=== PATIENT | female | born 1955 | race Caucasian/White ===

== ENCOUNTER 2020-02-29 08:34 | Outpatient (CLI) | payer BC, SELFPAY ==
--- NOTE | ~2020-02-29 | MR_ITS ---
EXAMINATION: MR lumbar spine wo con DATE: 02/29/2020 10:31 INDICATION: Lumbar spinal stenosis. Maigne syndrome. TECHNIQUE: Magnetic resonance imaging (MRI) of the lumbar spine was performed without intravenous con trast. Sequences included sagittal T2-weighted FSE, sagittal T2-weighted FS FSE, sagittal T1-weighted FSE, and axial T2-weighted FSE. COMPARISON: Lumbar spine MRI 01/04/17 FINDINGS: There is 12 degrees levoscoliosis of lumbar spine. There is 3 mm anterolisthesis of L3 on L 4. Vertebral body heights are normal. There is mildly decreased disc height at L3-L4 and severely dec reased disc height at L4-L5. The distal spinal cord signal intensity is normal. The conus medullaris is at T12-L1. The following disc levels are specifically discussed: L1-L2: The disc does not extend beyond the endplate margin. There is mild right facet joint osteoarth ritis. There is no neural foraminal stenosis. There is no central canal stenosis. L2-L3: The disc is bulging and has an annular fissure. There is moderate bilateral facet joint osteoa rthritis. There is mild bilateral neural foraminal stenosis. There is mild central canal stenosis. L3-L4: The disc is bulging and has an annular fissure. There is severe bilateral facet joint osteoart hritis. There is mild bilateral neural foraminal stenosis. There is mild central canal stenosis. L4-L5: The disc is bulging and has an annular fissure. There is severe right and mild left facet join t osteoarthritis. There is moderate right and mild left neural foraminal stenosis. There is mild cent ral canal stenosis. L5-S1: The disc is bulging and has an annular fissure. There is mild bilateral facet joint osteoarthr itis. There is mild bilateral neural foraminal stenosis. There is mild central canal stenosis. IMPRESSION: 1. Severe lumbar spondylosis, worsened from 01/04/2017. 2. Lumbar levoscoliosis. Reviewed, dictated and finalized at location A.
== END 2020-02-29 08:35 | disposition home or self-care (01) ==
LOC: CHSIMG 08:36
PROVIDERS: PCP Family Medicine; Visit Provider Nurse Practitioner Family
DX: M48.061 Spinal stenosis, lumbar region without neurogenic claudication (principal)
CPT/HCPCS: 72148

== ENCOUNTER 2021-04-13 09:21 | Outpatient (CLI) | payer BC, SELFPAY ==
--- NOTE | ~2021-04-13 | MM_ITS ---
EXAMINATION: MM scrn marybeth implant BI w toan HISTORY: Screening mammogram TECHNIQUE: Craniocaudal and mediolateral oblique 3-D tomosynthesis images with implant displacement a nd synthetic 2-D images were generated. Craniocaudal and mediolateral oblique views of the breasts wi thout implant displacement were obtained using full field digital mammography. CAD analysis was submi tted and interpreted. COMPARISON: No prior mammogram is available for comparison at this institution. BREAST PARENCHYMAL COMPOSITION: There are scattered areas of fibroglandular density. FINDINGS: There is no evidence of suspicious mass, calcification, or architectural distortion to sugg est malignancy in either breast. IMPRESSION: 1. No mammographic evidence of malignancy. 2. Recommend routine screening mammography in one year. BI-RADS Category 1: Negative Reviewed, dictated and finalized at location A.
[2021-04-13 09:34] LABS: Hematocrit 41.3 % (35.0-49.0); Hemoglobin 13.2 g/dL (12.0-15.0); Mean Corpuscular Volume 103.3 fL (78.0-102.0); Mean Platelet Volume 9.4 fl (9.2-11.8); Platelet Count Result 210 K/mm3 (150-420); Red Cell Distribution Width 12.4 % (11.6-14.4); White Blood Count 7.5 K/mm3 (4.8-10.8)
[2021-04-13 10:04] LABS: Alanine Aminotransferase 22 U/L (14-59); Alkaline Phosphatase 86 U/L (46-116); Anion Gap 9 mmol/L (8-16); Aspartate Amino Transferase 35 U/L (15-37); Bilirubin,Total 0.2 mg/dL (0.00-1.00); Blood Urea Nitrogen 19 mg/dL (7-18); Calcium 8.7 mg/dL (8.5-10.1); Carbon Dioxide 31 mmol/L (21-32); Chloride 103 mmol/L (98-108); Cholesterol 157 mg/dL (0-200); Estimated Glomerular Filt Rate > 60; Glucose 62 mg/dL (70-99); HDL Direct 54 mg/dL (40-60); LDL Cholesterol Calculated 88 mg/dL (<130); Osmolality Calculated 296 mOsm/kg (285-295); Potassium 4.6 mmol/L (3.5-5.1); Sodium 143 mmol/L (136-145); Total Protein 7.3 g/dL (6.4-8.2); Triglycerides 77 mg/dL (0-150)
== END 2021-04-13 09:22 | disposition home or self-care (01) ==
PROVIDERS: PCP Family Medicine; Visit Provider Family Medicine
DX: M54.9 Dorsalgia, unspecified (principal); G89.29 Other chronic pain; Z12.31 Encounter for screening mammogram for malignant neoplasm of breast
CPT/HCPCS: 36415; 77063; 77067; 80053; 80061; 85027

== ENCOUNTER 2021-10-05 14:36 | Outpatient (NON) | payer MEDICARE, SELFPAY | END 2021-10-05 14:37 | disposition home or self-care (01) | LOC: CHSLAB 14:38 | PROVIDERS: Visit Provider Family Medicine | DX: D22.5 Melanocytic nevi of trunk (principal) | CPT/HCPCS: 88305; 88342 ==

== ENCOUNTER 2022-05-04 11:39 | Outpatient (CLI) | payer MEDICARE, SELFPAY ==
[2022-05-04 11:51] LABS: Hematocrit 41.4 % (35.0-42.0); Hemoglobin 13.7 g/dL (11.7-13.8); Mean Corpuscular HGB Conc 33.1 g/dL (32.0-36.0); Mean Corpuscular Hemoglobin 34.2 pg (27.0-31.0); Mean Corpuscular Volume 103.2 fL (78.0-102.0); Mean Platelet Volume 9.7 fl (9.2-11.8); Platelet Count Result 205 K/mm3 (150-420); Red Blood Count 4.01 M/mm3 (4.20-5.40); Red Cell Distribution Width 12.8 % (11.6-14.4); White Blood Count 6.6 K/mm3 (4.8-10.8)
[2022-05-04 12:18] LABS: Alanine Aminotransferase 22 U/L (14-59); Alkaline Phosphatase 73 U/L (46-116); Anion Gap 8 mmol/L (8-16); Aspartate Amino Transferase 24 U/L (15-37); Bilirubin,Total 0.3 mg/dL (0.00-1.00); Blood Urea Nitrogen 17 mg/dL (7-18); Carbon Dioxide 27 mmol/L (21-32); Chloride 101 mmol/L (98-108); Cholesterol 162 mg/dL (0-200); Estimated Glomerular Filt Rate > 60; Glucose 232 mg/dL (70-99); HDL Direct 57 mg/dL (40-60); LDL Cholesterol Calculated 93 mg/dL (<130); Osmolality Calculated 290 mOsm/kg (285-295); Sodium 136 mmol/L (136-145); Total Protein 7.3 g/dL (6.4-8.2); Triglycerides 60 mg/dL (0-150)
== END 2022-05-04 11:40 | disposition home or self-care (01) ==
PROVIDERS: PCP Family Medicine; Visit Provider Family Medicine
DX: L40.50 Arthropathic psoriasis, unspecified (principal); F17.210 Nicotine dependence, cigarettes, uncomplicated; Z13.6 Encounter for screening for cardiovascular disorders; Z00.00 Encounter for general adult medical examination without abnormal findings
CPT/HCPCS: 36415; 80053; 80061; 85027

== ENCOUNTER 2022-06-01 07:30 | Day surgery (SDC) | payer MEDICARE, SELFPAY ==
[2022-05-11 10:20] VITALS: BMI 22.8
[2022-05-18 13:20] VITALS: BMI 23.4
[2022-06-01 07:45] VITALS: BP 128/72; PULSE 91; RESP 16; TEMP 37.4; O2SAT 99
[2022-06-01] MEDS: LACTATED RINGERS 1,000 ML 150 ML IV CONT (08:09)
--- NOTE | 2022-06-01 08:33 | WPDANESEPPF ---
Anes - Initial Pre Proc Eval Procedure: Operation Date: 06/01/22 10:00 Proposed Procedures p Screening Colonoscopy - Austin Rascon DO Date/Time: 06/01/22 08:33 Surgeon: Austin Rascon DO Pre Op Diagnosis: Neoplasm Screening Patient Data Age: 66 Gender: F Height: 1.65 m Weight: 62.7 kg Last Vital Signs Temp 37.4 C 06/01/22 07:45 Pulse 91 06/01/22 07:45 Resp 16 06/01/22 07:45 BP 128/72 06/01/22 07:45 Pulse Ox 99 06/01/22 07:45 O2 Del Method Room Air 06/01/22 07:45 Allergies Allergy/AdvReac Type Severity Reaction Status Date / Time pregabalin [From Lyrica] Allergy Severe Hives Verified 06/01/22 08:10 erythromycin base AdvReac Intermediate GI upset Verified 06/01/22 08:10 infliximab [From Remicade] AdvReac Intermediate Other Verified 06/01/22 08:10 Home Medications Medication Instructions Recorded Confirmed Type oxycodone-acetaminophen 7.5 mg-325 2 tablet PO Q4H PRN Pain 07/06/20 06/01/22 History mg tablet (Percocet) ibuprofen 200 mg tablet 600 mg PO BID PRN Pain 05/18/22 06/01/22 History ixekizumab 80 mg/mL subcutaneous 80 mg subcut MONTHLY 05/18/22 05/18/22 History auto-injector (Taltz Autoinjector) tizanidine 4 mg tablet 8 mg PO BID PRN MUSCLE SPASMS 05/18/22 05/18/22 History Patient hx anesthesia problems: none Family hx anesthesia problems: none Results Review: All pre-operative results and documents have been reviewed as part of the pre-operative evaluation. [facility] Past Medical History Medical History Arthritis with psoriasis Arthritis, rheumatoid Chronic back pain Cigarette nicotine dependence Surgical History Surgical History H/O section History of hip surgery History of hysterectomy Hx laparoscopic cholecystectomy Family History Family History Father Hypertension Social History Social History Smoking packs per day: 1 Smoking cigarettes per day: 20.0 Years smoked: 50 Smoking pack-years: 50.00 Smoking status: Current every day smoker Tobacco type: cigarettes Alcohol intake: never Substance use: current Substance use type: marijuana Other substance usage details: MEDICAL MARIJUANA Last use: WEEKLY Living arrangements: alone Spiritual care concerns: No Anes - Eval Final PreProcedure Day of Procedure 06/01/22 08:33 Patient weight: normal Heart: regular rate and rhythm Lungs: decreased breath sounds Airway: Mallampati scale class II Neurological: alert and oriented Last oral intake: >/= 8 hours ASA classification: III Emergent: no Anesthetic plan: proceed Anesthesia type and monitoring: general GIVS and standard monitoring Results Review: All pre-operative results and documents have been reviewed as part of the pre-operative evaluation. Informed Consent: The patient's anesthetic plan and its attendant risks and benefits were discussed with the patient/family/POA. Questions were solicited and answers provided to the satisfaction of the patient/family/POA.
--- NOTE | 2022-06-01 09:19 | PM.IMHP ---
H&P: HPI History of Present Illness Date/Time: 06/01/22 09:19 Chief Complaint: Screening Narrative: 66 yo woman presents for colonoscopy. Last done 7-10 years ago. she has had a couple episodes of stool incontinence lately. Denies hematochezia or melena. She has relatives that had colon cancer but no 1st degree relatives. Review of Systems Review of Systems: All systems reviewed & are unremarkable except as noted in HPI and below Constitutional: Constitutional: Denies chills, Denies fever(s), Denies headache(s) and Denies weight loss Eyes: Eyes: Denies change in vision ENT: Denies dizziness, Denies headache(s), Denies neck mass and Denies throat swelling Cardiovascular: Cardiovascular: Denies chest pain, Denies lightheadedness and Denies dyspnea Respiratory: Respiratory: Denies cough, Denies dyspnea and Denies wheezing Gastrointestinal: Gastrointestinal: Denies abdominal pain, Denies change in bowel habits, Denies nausea and Denies vomiting Genitourinary: Genitourinary: Denies hematuria and Denies dysuria Musculoskeletal: Musculoskeletal: Reports as per HPI Integumentary/Breasts: Skin/Breast: Reports as per HPI Neurologic: Denies dizziness and Denies headache(s) Allergic/Immunologic: Allergic/Immunologic: Denies throat swelling and Denies wheezing PMFSH Past Medical History Medical History Arthritis with psoriasis Arthritis, rheumatoid Chronic back pain Cigarette nicotine dependence Surgical History Surgical History H/O section History of hip surgery History of hysterectomy Hx laparoscopic cholecystectomy Family History Family History Father Hypertension Social History Social History Smoking packs per day: 1 Smoking cigarettes per day: 20.0 Years smoked: 50 Smoking pack-years: 50.00 Smoking status: Current every day smoker Tobacco type: cigarettes Alcohol intake: never Substance use: current Substance use type: marijuana Other substance usage details: MEDICAL MARIJUANA Last use: WEEKLY Living arrangements: alone Spiritual care concerns: No Meds Home Medications and Allergies Home Medications Medication Instructions Recorded Confirmed Type oxycodone-acetaminophen 7.5 mg-325 2 tablet PO Q4H PRN Pain 07/06/20 06/01/22 History mg tablet (Percocet) ibuprofen 200 mg tablet 600 mg PO BID PRN Pain 05/18/22 06/01/22 History ixekizumab 80 mg/mL subcutaneous 80 mg subcut MONTHLY 05/18/22 05/18/22 History auto-injector (Taltz Autoinjector) tizanidine 4 mg tablet 8 mg PO BID PRN MUSCLE SPASMS 05/18/22 05/18/22 History Allergies Allergy/AdvReac Type Severity Reaction Status Date / Time pregabalin [From Lyrica] Allergy Severe Hives Verified 06/01/22 08:10 erythromycin base AdvReac Intermediate GI upset Verified 06/01/22 08:10 infliximab [From Remicade] AdvReac Intermediate Other Verified 06/01/22 08:10 Vital Signs Vital Signs - 24 hr 06/01/22 07:45 Temperature 37.4 C Pulse Rate 91 Respiratory Rate 16 Blood Pressure 128/72 Pulse Oximetry 99 Oxygen Delivery Room Air Exam Const: General: no acute distress and alert Orientation/consciousness: patient oriented x3 HENMT: Head: normocephalic and atraumatic Ears: hearing grossly normal bilaterally Face/Nose/Sinus: Normal nares present Mouth: Yes Normal oral and palatal mucosa present Eyes: Periorbital: periorbital findings normal Sclera: sclerae normal EOM: EOMs intact bilaterally Neck: Neck: normal visual inspection, no lymphadenopathy and trachea midline Chest: Chest palpation & inspection: normal inspection of the chest Resp: Effort & Inspection: normal respiratory effort Auscultation: clear to auscultation bilaterally Cardio: Jugular venous distension: no JVD Rate: regular rate Rhythm: regular rhyth
[2022-06-01 09:54] VITALS: BP 114/62; PULSE 71; RESP 15; O2SAT 100
[2022-06-01 10:04] VITALS: BP 119/67; PULSE 72; RESP 14; O2SAT 100
--- NOTE | 2022-06-01 10:11 | WPDANESPN ---
Anes - Prog Note Post-Op Date/Time: 06/01/22 10:11 Cardiovascular status: normal Respiratory status: normal Airway patency: baseline Mental status: baseline Post-Op hydration status: normal Vital Signs: Last Vital Signs Temp 37.4 C 06/01/22 07:45 Pulse 72 06/01/22 10:07 Resp 14 06/01/22 10:07 BP 119/67 06/01/22 10:07 Pulse Ox 100 06/01/22 10:07 O2 Del Method Room Air 06/01/22 10:07 Pain Score (VAS): 0 I/O: Intake & Output 05/31/22 06/01/22 06/01/22 23:59 07:59 15:59 Intake Total 600 Balance 600 Patient Feedback: Patient satisfied with anesthetic care.
[2022-06-01 10:14] VITALS: BP 126/64; PULSE 58; RESP 14; O2SAT 100
== END 2022-06-01 10:30 | disposition home or self-care (01) ==
PROVIDERS: PCP Family Medicine; Visit Provider Surgery
PROC: 0DJD8ZZ Inspection of Lower Intestinal Tract, Via Natural or Artificial Opening Endoscopic (ICD-10-PCS; CPT 45378; principal; 2022-06-01 10:00)
DX: R19.7 Diarrhea, unspecified (principal)
CPT/HCPCS: 45385

== ENCOUNTER 2022-06-01 13:49 | Outpatient (NON) | payer MEDICARE, SELFPAY | END 2022-06-01 13:50 | disposition home or self-care (01) | LOC: ANHLAB 06-02 13:49 | PROVIDERS: PCP Family Medicine; Visit Provider Surgery | DX: D12.5 Benign neoplasm of sigmoid colon (principal) | CPT/HCPCS: 88305 ==

== ENCOUNTER 2022-06-07 12:30 | Outpatient (CLI) | payer MEDICARE, SELFPAY ==
--- NOTE | ~2022-06-07 | XR_ITS ---
EXAM: XR sacroiliac joints min 3V DATE: 06/07/2022 13:05 HISTORY: Arthropathic psoriasis,JOINT PAIN,CHRONIC . COMPARISON: None available. FINDINGS: Decreased mineralization. No fracture or dislocation. No lytic or blastic lesion. Incomple tely visualized right hip arthroplasty. Scattered pelvic surgical clips. Phleboliths. No erosion or p eriosteal change. Soft tissues within normal limits. IMPRESSION: Unremarkable SI joint radiograph findings. Reviewed, dictated and finalized at location K.
--- NOTE | ~2022-06-07 | XR_ITS ---
EXAM: XR hand BI arthritis min 3V DATE: 06/07/2022 13:05 HISTORY: Arthropathic psoriasis,JOINT PAIN,CHRONIC,HAND SWELLING . COMPARISON: None available. FINDINGS: Decreased mineralization. No fracture or dislocation. No lytic or blastic lesion. Mild ost eoarthritic changes in the fingers and thumbs. No erosion or periosteal change. Small foci of dystrop hic calcification adjacent to the left first distal phalanx and the right second DIP joint. IMPRESSION: Osteopenia. Mild osteoarthritic changes in the fingers and thumbs. No radiographic eviden ce of inflammatory arthropathy. Reviewed, dictated and finalized at location K. IMPRESSION: Osteopenia. Mild osteoarthritic changes in the fingers and thumbs. No radiographic evidence of inflammatory arthropathy.
[2022-06-07 14:07] LABS: Rheumatoid Factor Screen Negative (Negative)
[2022-06-09 22:40] LABS: Anti Cyclic Citrullinated Pept <16 Units (<20)
== END 2022-06-07 12:31 | disposition home or self-care (01) ==
LOC: CHSLAB 12:32
PROVIDERS: PCP Family Medicine; Visit Provider Internal Medicine
DX: L40.50 Arthropathic psoriasis, unspecified (principal); M19.90 Unspecified osteoarthritis, unspecified site
CPT/HCPCS: 36415; 72202; 73130; 86200; 86430

== ENCOUNTER 2022-09-30 13:02 | Outpatient (CLI) | payer MEDICARE, SELFPAY ==
[2022-09-30 13:20] LABS: Basophils Absolute Auto 0.06 K/mm3 (0.00-0.10); Basophils Percent Auto 0.9 % (0.0-1.0); Eosinophils Absolute Auto 0.16 K/mm3 (0.02-0.50); Eosinophils Percent Auto 2.4 % (1.0-6.0); Hematocrit 41.9 % (35.0-42.0); Hemoglobin 13.5 g/dL (11.7-13.8); Immature Granulocyte Absolute 0.01 K/mm3 (0.00-0.00); Immature Granulocyte Percent A 0.2 % (0.0-0.0); Lymphocytes Absolute Auto 2.75 K/mm3 (1.10-4.50); Lymphocytes Percent Auto 41.7 % (18.0-42.0); Mean Corpuscular HGB Conc 32.2 g/dL (32.0-36.0); Mean Corpuscular Hemoglobin 33.4 pg (27.0-31.0); Mean Corpuscular Volume 103.7 fL (78.0-102.0); Mean Platelet Volume 9.7 fl (9.2-11.8); Monocytes Absolute Auto 0.42 K/mm3 (0.10-0.90); Monocytes Percent Auto 6.4 % (2.0-11.0); Neutrophils Absolute Auto 3.2 K/mm3 (1.7-7.2); Neutrophils Percent Auto 48.4 % (50.0-70.0); Platelet Count Result 204 K/mm3 (150-420); Red Blood Count 4.04 M/mm3 (4.20-5.40); Red Cell Distribution Width 12.3 % (11.6-14.4); White Blood Count 6.6 K/mm3 (4.8-10.8)
[2022-09-30 13:51] LABS: Alkaline Phosphatase 84 U/L (46-116); Anion Gap 6 mmol/L (8-16); Aspartate Amino Transferase 26 U/L (15-37); Bilirubin,Total 0.3 mg/dL (0.00-1.00); Blood Urea Nitrogen 12 mg/dL (7-18); Calcium 8.7 mg/dL (8.5-10.1); Carbon Dioxide 30 mmol/L (21-32); Chloride 104 mmol/L (98-108); Estimated Glomerular Filt Rate > 60; Glucose 89 mg/dL (70-99); Osmolality Calculated 288 mOsm/kg (285-295); Potassium 4.5 mmol/L (3.5-5.1); Sodium 140 mmol/L (136-145); Total Protein 7.4 g/dL (6.4-8.2)
[2022-09-30 13:59] LABS: Alanine Aminotransferase 24 U/L (14-59)
[2022-10-06 10:18] LABS: NIL 1.07 IU/mL; Quantiferon TB Plus, 1T NEGATIVE (NEGATIVE); TB1-NIL <0.00 IU/mL; TB2-NIL 0.23 IU/mL
== END 2022-09-30 13:03 | disposition home or self-care (01) ==
LOC: CHSLAB 13:05
PROVIDERS: PCP Family Medicine
DX: Z79.899 Other long term (current) drug therapy (principal)
CPT/HCPCS: 36415; 80053; 85025; 86480

== ENCOUNTER 2023-06-22 11:43 | Outpatient (CLI) | payer MEDICARE, SELFPAY ==
[2023-06-22 11:58] LABS: Basophils Absolute Auto 0.06 K/mm3 (0.00-0.10); Eosinophils Absolute Auto 0.12 K/mm3 (0.02-0.50); Eosinophils Percent Auto 1.9 % (1.0-6.0); Hematocrit 42.1 % (35.0-42.0); Hemoglobin 13.9 g/dL (11.7-13.8); Immature Granulocyte Absolute 0.01 K/mm3 (0.00-0.00); Immature Granulocyte Percent A 0.2 % (0.0-0.0); Lymphocytes Percent Auto 45.2 % (18.0-42.0); Mean Corpuscular Hemoglobin 33.7 pg (27.0-31.0); Mean Corpuscular Volume 102.2 fL (78.0-102.0); Mean Platelet Volume 9.6 fl (9.2-11.8); Monocytes Absolute Auto 0.44 K/mm3 (0.10-0.90); Monocytes Percent Auto 7.1 % (2.0-11.0); Neutrophils Absolute Auto 2.8 K/mm3 (1.7-7.2); Neutrophils Percent Auto 44.6 % (50.0-70.0); Platelet Count Result 204 K/mm3 (150-420); Red Blood Count 4.12 M/mm3 (4.20-5.40); Red Cell Distribution Width 12.7 % (11.6-14.4); White Blood Count 6.2 K/mm3 (4.8-10.8)
[2023-06-22 12:01] LABS: Appearance Urine Clear (Clear); Bilirubin Urine Negative (Negative); Blood Urine Negative (Negative); Color Urine Light Yellow (Yellow); Glucose Urine UA Negative (Negative); Ketones Urine Negative (Negative); Leukocyte Esterase Ur Negative LEU/UL (Negative); Nitrate Urine Negative (Negative); Protein Urine Negative (Negative); Specific Grav Ur 1.015 (1.010-1.020); Urobilinogen Urine 0.2 mg/dL (0.2-1.0)
[2023-06-22 12:07] LABS: Add Urine Microscopic? NO
[2023-06-22 12:46] LABS: Alanine Aminotransferase 20 U/L (14-59); Albumin Level 3.7 g/dL (3.4-5.0); Alkaline Phosphatase 83 U/L (46-116); Anion Gap 7 mmol/L (8-16); Aspartate Amino Transferase 25 U/L (15-37); Bilirubin,Total 0.4 mg/dL (0.00-1.00); Blood Urea Nitrogen 14 mg/dL (7-18); Calcium 9.3 mg/dL (8.5-10.1); Carbon Dioxide 30 mmol/L (21-32); Chloride 103 mmol/L (98-108); Cholesterol 176 mg/dL (0-200); Estimated Glomerular Filt Rate > 60; Glucose 90 mg/dL (70-99); HDL Direct 55 mg/dL (40-60); LDL Cholesterol Calculated 108 mg/dL (<130); Osmolality Calculated 290 mOsm/kg (285-295); Potassium 4.7 mmol/L (3.5-5.1); Sodium 140 mmol/L (136-145); Total Protein 7.3 g/dL (6.4-8.2); Triglycerides 67 mg/dL (0-150)
[2023-06-23 19:52] LABS: Chlamydia trachomatis NOT DETECTED (NOT DETECTE); Neisseria gonorrhoeae PCR NOT DETECTED (NOT DETECTE)
[2023-06-25 16:32] LABS: Vitamin D 25 Hydroxy 31 ng/mL (30-100)
== END 2023-06-22 11:44 | disposition home or self-care (01) ==
PROVIDERS: PCP Family Medicine; Visit Provider Nurse Practitioner Family
DX: R53.83 Other fatigue (principal); R30.9 Painful micturition, unspecified; Z79.899 Other long term (current) drug therapy; R39.9 Unspecified symptoms and signs involving the genitourinary system
CPT/HCPCS: 36415; 80053; 80061; 81003; 82306; 84443; 85025; 87491; 87591

== ENCOUNTER 2024-04-01 12:37 | Outpatient (CLI) | payer MEDICARE, SELFPAY ==
--- NOTE | ~2024-04-01 | CT_ITS ---
EXAMINATION:CT lung screening DATE: 04/01/2024 13:09 INDICATION: Personal history of nicotine dependence. Current smoker with 51 pack-year history. TECHNIQUE: Computed tomography (CT) of the chest was performed without intravenous contrast. Automate d exposure control and iterative reconstruction technique were employed. The dose-length product (DLP ) was 66.12 mGy-cm. COMPARISON: Chest CT 01/16/2018 FINDINGS: There is mild scarring at the lung apices. There is mild emphysema. There is mild atelectas is bilaterally. No pleural effusion. The heart size is normal. There are coronary artery calcificatio ns. No pericardial effusion. Pneumobilia is noted, likely secondary to sphincterotomy. There are schmitt ges of cholecystectomy. Breast implants are noted. There is moderate thoracic spondylosis and severe cervical spondylosis. IMPRESSION: 1. Lung-RADS category 2: Benign appearance or behavior. Continue annual screening with noncontrast lo w-dose chest CT in 12 months. Reviewed, dictated and finalized at location A. IMPRESSION: 1. Lung-RADS category 2: Benign appearance or behavior. Continue annual screeni ng with noncontrast low-dose chest CT in 12 months.
--- NOTE | ~2024-04-01 | DEXA_ITS ---
Bone Density Report Name: ALAYNA VALLEJO Age: 68 Sex: Female Ethnicity: White Date of : 1955 Indication: postmenopausal; screening for osteoporosis; height loss; history of glucocorticoids; hysterectomy; Referring Provider: PEPE BERMEO Study: Bone densitometry was performed. Exam Date: April 01, 2024 Accession number: [id number] Bone Density: Region BMD T-score Z-score Classification AP Spine(L1-L4) 1.104 0.5 2.5 Normal Femoral Neck (Left) 0.785 -0.6 1.1 Normal Total Hip (Left) 0.900 -0.3 1.0 Normal World Health Organization criteria for BMD impression classify patients as: Normal (T-score at or above -1.0), Osteopenia (T-score between -1.0 and -2.5), or Osteoporosis (T-score at or below -2.5). 10-year Fracture Risk: FRAX not reported because: All T-scores for Spine Total, Hip Total, Femoral Neck at or above -1.0 Clinical Information Provided by Patient: Smokes Has taken Glucocorticoids Has the following medical conditions: Hysterectomy Patient maximum height was 66.0 Drinks caffeinated beverages Onset of menses at age 14 Number of children 2 Missed period for more than 6 months in a row Impression: The patient has normal bone mass. The patient has risk factors, including: smoking, history of glucocorticoid therapy. Discussion: BONE DENSITY IS ABOVE THE MINIMUM DESIRABLE LEVEL AT ALL SKELETAL SITES TESTED. This patient?s bone mineral density is above the minimum desirable level (T-score -1.0 or better) at all sites measured. The patient should follow a healthful lifestyle (good nutrition with adequate calcium and vitamin D, and appropriate weight-bearing exercise). Follow-Up: Consider repeating this study in 5 years or sooner if there is some new clinical indication. Reported by: FRANCO on 04/01/2024 2:49:00 PM. Reviewed, dictated and finalized at location [facility]
== END 2024-04-01 12:38 | disposition home or self-care (01) ==
PROVIDERS: PCP Internal Medicine; Visit Provider Internal Medicine
DX: Z12.2 Encounter for screening for malignant neoplasm of respiratory organs (principal); Z87.891 Personal history of nicotine dependence; M81.0 Age-related osteoporosis without current pathological fracture; I73.9 Peripheral vascular disease, unspecified
CPT/HCPCS: 71271; 77080

== ENCOUNTER 2024-05-16 08:02 | Outpatient (CLI) | payer MEDICARE, SELFPAY ==
--- NOTE | ~2024-05-16 | US_ITS ---
EXAMINATION: US arterial ankle brachial ind DATE: 05/16/2024 09:12 INDICATION: Peripheral arterial occlusive disease. TECHNIQUE: Segmental pressures and plethysmographic and Doppler waveforms of the brachial and lower e xtremity arteries were obtained. COMPARISON: None. FINDINGS: Right and left brachial artery pressures unable to be obtained due to inability to occlude the vessel s. This precludes assessment for ankle brachial and toe brachial indices. The pressures at the machine silk screen printer ior tibial and dorsalis pedis arteries were also unable to be obtained at either ankle due to inabili ty to occlude the vessels. The total pressures measured 91 mmHg on the right and 93 mmHg on the left. Arterial Doppler waveforms demonstrate monophasic waveform at the right posterior tibial artery and biphasic waveforms at the right dorsalis pedis and left posterior tibial artery and triphasic wavefor ms at the left dorsalis pedis artery, all with brisk systolic upstrokes. IMPRESSION: 1. Limited study with arterial pressures unable to be obtained due to inability to occlude the the br achial, posterior tibial or dorsalis pedis arteries on both the left and right. 2. Arterial systolic pressures of 91 and 93 mmHg at the right and left great toes respectively and wi th normal brisk systolic upstrokes at the bilateral posterior tibial and dorsalis pedis arteries. Reviewed, dictated and finalized at location A. IMPRESSION: 1. Limited study with arterial pressures unable to be obtained due to inability to occlude the the brachial, posterior tibial or dorsalis pedis arteries on kenyon th the left and right. 2. Arterial systolic pressures of 91 and 93 mmHg at the right and left great to es respectively and with normal brisk systolic upstrokes at the bilateral poste rior tibial and dorsalis pedis arteries.
--- NOTE | ~2024-05-16 | US_ITS ---
EXAMINATION: US aorta DATE: 05/16/2024 09:13 INDICATION: Abdominal aortic aneurysm TECHNIQUE: Grayscale, color Doppler, and pulsed Doppler images of the aorta and common iliac arteries were obtained. COMPARISON: None. FINDINGS: The proximal aorta measures 2.6 cm. The mid aorta measures 1.9 cm. The distal aorta measures 1.1 cm. There there are some scattered nodularity minimally significant shadowing calcified plaque along the abdominal aorta. The right common iliac artery measures 7 mm. The left common iliac artery measures 7 mm. IMPRESSION: 1. Normal caliber abdominal aorta. Reviewed, dictated and finalized at location A.
--- NOTE | ~2024-05-16 | US_ITS ---
EXAMINATION: US carotid duplex BI DATE: 05/16/2024 09:33 INDICATION: Carotid bruit. TECHNIQUE: Grayscale, color Doppler, and pulsed Doppler images of the cervical carotid arteries were obtained. The degree of vessel stenosis is placed in one of the following categories: normal, <50%, 5 0-69%, >=70% but less than near-occlusion, near-occlusion, or total occlusion. Note that percent sten osis relative to normal distal artery lumen diameter is indirectly measured from velocity measurement s as described by Justin, et al. Radiology 2003; 229:340-346. Notes: Normal: Peak systolic velocity <125 centimeters/sec and no plaque <50%. Peak systolic velocity <125 ( EDV <40; ICA/CCA PSV ratio <2.0; used these factors only a tandem lesions or low cardiac output or co ntralateral disease) 50-69 %: PSV 125-230 (EDV 40-100; ratio 2-4) >= 70% but less than near occlusion: PSV greater than 230 (EDV > 100; ratio> 4.0) Near Occlusion: PSV that is variable; markedly narrowed lumen Occlusion: Absent flow on color/spectral Doppler and no lumen on huff scale. COMPARISON: None. FINDINGS: RIGHT: The right common carotid artery (CCA) peak systolic velocity (PSV) is 81 cm/s. The right internal car otid artery (ICA) PSV is 110 cm/s. The right ICA end-diastolic velocity (EDV) is 41 cm/s. The right I CA/CCA PSV ratio is 1.3. The external carotid artery (ECA) PSV is 64 cm/s. There is antegrade flow in the right vertebral artery. LEFT: The left CCA PSV is 77 cm/s. The left ICA PSV is 62 cm/s. The left ICA EDV is 26 cm/s. The left ICA/C CA PSV ratio is 0.8. The ECA PSV is 88 cm/s. There is antegrade flow in the left vertebral artery. IMPRESSION: 1. Less than 50% stenosis in the right internal carotid artery by sonographic criteria. 2. Less than 50% stenosis in the left internal carotid artery by sonographic criteria. Reviewed, dictated and finalized at location B. IMPRESSION: 1. Less than 50% stenosis in the right internal carotid artery by sonographic c terrence. 2. Less than 50% stenosis in the left internal carotid artery by sonographic cr randall.
== END 2024-05-16 08:03 | disposition home or self-care (01) ==
PROVIDERS: PCP Internal Medicine; Visit Provider Internal Medicine
DX: I65.23 Occlusion and stenosis of bilateral carotid arteries (principal); R09.89 Other specified symptoms and signs involving the circulatory and respiratory systems; I73.9 Peripheral vascular disease, unspecified; Z13.6 Encounter for screening for cardiovascular disorders
CPT/HCPCS: 76775; 93880; 93922

== ENCOUNTER 2024-06-05 08:00 | Outpatient (CLI) | payer MEDICARE, SELFPAY ==
--- NOTE | ~2024-06-05 | CT_ITS ---
EXAMINATION: CTA abd aorta runoff DATE: 06/05/2024 08:42 INDICATION: Peripheral arterial occlusive disease TECHNIQUE: Computed tomographic angiography (CTA) of the abdominal, pelvis, and both lower extremitie s was performed with 150 mL Omnipaque 350 intravenous contrast. Automated exposure control and iterat katie reconstruction technique were employed. The dose-length product was 749.83 mGy-cm. COMPARISON: CT abdomen pelvis dated 07/24/2014 FINDINGS: ABDOMINAL AORTA AND ITS BRANCHES: There is scattered mild calcified atherosclerosis without hemodynamic significant stenosis of the nor mal caliber abdominal aorta and at the origin of the celiac axis. No evident atherosclerotic plaque a long the superior mesenteric, left renal and paired right renal arteries. There is atherosclerotic pl aque at the origin of the contrast opacified inferior mesenteric artery which is too small to assess for stenosis. PELVIC VASCULATURE: Nonhemodynamically significant atherosclerotic plaque along the bilateral common and internal iliac a rteries. No evident atherosclerotic plaque along the bilateral external iliac arteries. RIGHT LOWER EXTREMITY: Small amount of atherosclerotic plaque with mild, <50% stenosis at the right common femoral artery. T he more distal right lower limb including the superficial femoral, profunda femoral and popliteal art eries are patent with no evident atherosclerotic plaque. The right anterior tibial artery appears atr etic throughout the left anterior tibial artery with faint contrast seen extending in the artery belo w the level of the ankle. The right dorsalis pedis is also atretic relative to the left dorsalis pedi s artery. No evident stenosis along the tibioperoneal trunk, posterior tibial and peroneal arteries, the former with runoff below the ankle and the latter with runoff to just above level of the ankle. LEFT LOWER EXTREMITY: No evident atherosclerotic plaque in the arteries of the left lower limb with normal fatty peroneal a rtery to just above level of the ankle and below the ankle into the foot at the left into tibial and posterior tibial arteries. ADDITIONAL FINDINGS: Mild dependent atelectasis in bilateral lower lobes. Heart size is normal. No pericardial or pleural effusion. Bilateral breast implants. Pneumobilia likely related to prior cholecystectomy and sphincte rotomy with surgical clips at the gallbladder fossa. Postoperative change of prior hysterectomy with multiple surgical clips in the pelvis suggesting prior lymph node dissections. Bowels are unremarkabl e. No pathologically enlarged abdominal or pelvic lymphadenopathy. Mild lumbar levoscoliosis with sev ere spondylosis. Right total hip arthroplasty. IMPRESSION: 1. Mild scattered atherosclerotic plaque in the abdominal aorta and bilateral common and internal il iac arteries. 2. No evident stenosis along the arteries of the left lower limb with runoff to the ankle the peronea l artery and below the ankle at the anterior tibial and posterior tibial arteries. 3. Small amount of nonhemodynamically significant atherosclerotic plaque at the right common femoral artery, with runoff below the ankle in the diffusely atretic right anterior tibial and dorsalis pedis arteries and with remaining arteries widely patent with runoff to the ankle in the right peroneal ar elissa and below the ankle in the right posterior tibial artery. Reviewed, dictated and finalized at location A. IMPRESSION: 1. Mild scattered atherosclerotic plaque in the abdominal aorta and bilateral common and internal iliac arteries. 2. No evident stenosis along the arteries of the left lower limb with runoff to the ankle the peroneal artery and below the ankle at the anterior tibial and p osterior tibial arteries. 3. Small amount of nonhemo
[2024-06-05 08:30] LABS: Estimated Glomerular Filt Rate > 60
== END 2024-06-05 08:01 | disposition home or self-care (01) ==
PROVIDERS: PCP Internal Medicine; Visit Provider Internal Medicine
DX: I73.9 Peripheral vascular disease, unspecified (principal)
CPT/HCPCS: 75635; Q9967

== ENCOUNTER 2024-07-24 09:07 | Outpatient (CLI) | payer MEDICARE, SELFPAY ==
--- NOTE | ~2024-07-24 | CT_ITS ---
EXAMINATION: CT soft tissue neck w con DATE: 07/24/2024 09:41 INDICATION: Localized swelling, mass and lump, neck. TECHNIQUE: Computed tomography (CT) of the neck was performed with 75 mL Omnipaque-350 intravenous co ntrast. Automated exposure control and iterative reconstruction technique were employed. The dose-larissa gth product was 328.27 mGy-cm. COMPARISON: CT neck 08/01/2011 FINDINGS: There is mild emphysema. There is a 15 mm subcutaneous cyst in left cheek, likely a sebaceo us cyst. There are no pathologically enlarged lymph nodes. There is plaque in the proximal internal c arotid arteries with less than 50% stenosis relative to normal distal artery lumen diameters. There i s severe cervical spondylosis. IMPRESSION: 1. No lymphadenopathy. 2. 15 mm subcutaneous cyst in left cheek, likely a sebaceous cyst. Reviewed, dictated and finalized at location A. [employer]ING [employer]
[2024-07-24 09:34] LABS: Estimated Glomerular Filt Rate > 60
== END 2024-07-24 09:08 | disposition home or self-care (01) ==
PROVIDERS: PCP Internal Medicine; Visit Provider Internal Medicine
DX: R22.1 Localized swelling, mass and lump, neck (principal)
CPT/HCPCS: 70491; Q9967

== ENCOUNTER → 2024-08-08 10:09 | Outpatient (REF) | payer MEDICARE, SELFPAY | LOC: ANHLAB 10:09 | PROVIDERS: Visit Provider Plastic Surgery | DX: L72.0 Epidermal cyst (principal); K09.9 Cyst of oral region, unspecified | CPT/HCPCS: 88305 ==